=== PATIENT | female | born 1990 | race Caucasian/White ===

== ENCOUNTER 2017-12-01 01:25 | Inpatient (IN) | payer OTHER ==
[~2017-12-01] VITALS: Ht 152.4 cm; Wt 60.3 kg
[2017-12-01] MEDS ORDERED: USTE45DI (01:38)
[2017-12-01] MEDS ORDERED: FOLI1TAB16 PO (01:39)
[2017-12-01] MEDS ORDERED: CHOL50004 PO (01:39)
[2017-12-01] MEDS ORDERED: PANT40TA2 PO (01:39)
[2017-12-01] MEDS ORDERED: NORG1TAB PO (01:39)
--- NOTE | 2017-12-01 01:41 | NUR ---
Dr. Kent at bedside for MSE.
[2017-12-01] MEDS ORDERED: ONDANSETRON 4 MG/2 ML VIAL ONE ×3 (02:00→04:41)
[2017-12-01] MEDS ORDERED: HYDROMORPHONE 1 MG/1 ML DISP.SYRIN ONE ×2 (02:00→02:59)
[2017-12-01] MEDS ORDERED: ONDANSETRON 4 MG/2 ML VIAL IV ONE (02:00)
[2017-12-01] MEDS ORDERED: HYDROMORPHONE 1 MG/1 ML DISP.SYRIN IV ONE ×2 (02:00→03:00)
[2017-12-01] MEDS ORDERED: IV NORMAL SALINE 1000 ML BAG IV ONE ×2 (02:00→03:45)
[2017-12-01] MEDS ORDERED: FAMOTIDINE. 20 MG/2 ML VIAL IV ONE ×4 (02:00→03:45)
[2017-12-01 02:18] LABS: BASOPHILS % (AUTO) 0.4 % (0.0-2.0); EOSINOPHILS # (AUTO) 0.1 K/uL (0.0-0.7); HEMATOCRIT 38.4 % (31.2-41.9); HEMOGLOBIN 13.2 g/dL (10.9-14.3); LYMPHOCYTES # (AUTO) 2.2 K/uL (20.0-40.0); LYMPHOCYTES % (AUTO) 43.6 % (20.5-51.5); MEAN CORPUSCULAR HEMOGLOBIN 31.1 uug (24.7-32.8); MEAN CORPUSCULAR HGB CONC 34 g/dL (32.3-35.6); MEAN CORPUSCULAR VOLUME 90.2 fL (75.5-95.3); MONOCYTES # (AUTO) 0.5 K/uL (2.0-10.0); MONOCYTES % (AUTO) 9.7 % (0.0-11.0); NEUTROPHILS # (AUTO) 2.3 K/uL (1.8-8.9); NEUTROPHILS % (AUTO) 45.3 % (38.5-71.5); PLATELET COUNT (AUTO) 287 K/uL (179-408); RED BLOOD CELL COUNT(AUTO) 4.26 MIL/uL (3.63-4.92); WHITE BLOOD COUNT (AUTO) 5.1 K/uL (3.8-11.8)
[2017-12-01 02:23] LABS: CARBON DIOXIDE 27 mmol/L (21-32); CHLORIDE 106 mmol/L (98-107); CREATININE 0.6 mg/dL (0.6-1.3); GLUCOSE 86 mg/dL (74-106); POTASSIUM 3.6 mmol/L (3.5-5.1); UREA NITROGEN, BLOOD 11 mg/dL (7-18)
[2017-12-01 02:28] LABS: ALANINE AMINOTRANSFERASE 16 U/L (14-59); ALKALINE PHOSPHATASE 39 U/L (50-136); ASPARTATE AMINOTRANSFERASE 16 U/L (15-37); BILIRUBIN,DIRECT < 0.1 mg/dL (0.0-0.2); BILIRUBIN,TOTAL 0.4 mg/dL (0.2-1.0); LIPASE 152 U/L (73-393); TOTAL PROTEIN, SERUM 7.8 g/dL (6.4-8.2)
--- NOTE | 2017-12-01 02:43 | NUR ---
Pt provided urine sample, sent to lab.
[2017-12-01] MEDS ORDERED: ONDANSETRON IV *ER 4 MG/2 ML VIAL IV ONE ×2 (02:45→04:45)
--- NOTE | 2017-12-01 02:51 | NUR ---
Pt states abdominal pain is coming back, currently a 6/10, and still nauseous and vomitted twice. MD notified.
[2017-12-01 02:53] LABS: *CLARITY,URINE CLEAR (CLEAR); *COLOR,URINE YELLOW (YELLOW); *PROTEIN,URINE NEGATIVE (NEGATIVE)
[2017-12-01 02:54] LABS: *BILIRUBIN,URIN NEGATIVE (NEGATIVE); *BLOOD, URINE NEGATIVE (NEGATIVE); *KETONES,URINE NEGATIVE (NEGATIVE); *UROBILINOGEN,URINE 0.2 E.U./dl (NORMAL); LEUKOCYTE ESTERASE ,URINE TRACE (NEGATIVE); NITRITE, URINE NEGATIVE (NEGATIVE); UGLUCOSE NEGATIVE (NEGATIVE)
[2017-12-01] MEDS ORDERED: diphenhydrAMINE 50 MG/1 ML VIAL ONE (02:58)
[2017-12-01 02:59] LABS: BACTERIA,URINE FEW /HPF (NONE SEEN); RBC,URINE NONE SEEN /HPF (0-3); SQUAMOUS EPITHELIAL CELL,UR MANY /HPF (NONE SEEN); WBC,URINE 0-3 /HPF (0-3)
[2017-12-01] MEDS ORDERED: PROMETHAZINE HCL INJ 12.5 MG in IV DEXTROSE 5% 50 ML IV ONE (03:00)
[2017-12-01] MEDS ORDERED: diphenhydrAMINE 50 MG/1 ML VIAL IV ONE (03:00)
[2017-12-01] MEDS ORDERED: methylPREDNISolone SOD SUCC 125 MG/2 ML VIAL ONE (03:44)
[2017-12-01] MEDS ORDERED: methylPREDNISolone SOD SUCC 125 MG/2 ML VIAL IV ONE (03:45)
--- NOTE | 2017-12-01 04:11 | NUR ---
Pt's O2 sat 88% on room air, placed pt on O2@2L/min via nasal cannula.
[2017-12-01] MEDS ORDERED: ACETAMINOPHEN/CODEINE 300-30 MG TABLET PO ONE (04:15)
--- NOTE | 2017-12-01 04:19 | NUR ---
Administered PO challenge to patient.
--- NOTE | 2017-12-01 04:25 | NUR ---
Pt went to the bathroom, states she vomitted some of the water.
[2017-12-01] MEDS ORDERED: ACETAMINOPHEN/CODEINE 300-30 MG TABLET ONE (04:28)
--- NOTE | 2017-12-01 05:07 | NUR ---
Dr. Kent on panel call with Dr. Mcdonough.
[2017-12-01] MEDS ORDERED: IV NS 1000 ML 1,000 ML IV PRN (05:08)
[2017-12-01] MEDS ORDERED: Z GUARD REMEDY PASTE 57 GM TUBE TOP PRN (05:15)
[2017-12-01] MEDS ORDERED: ONDANSETRON 4 MG/2 ML VIAL IV PRN (05:15)
[2017-12-01] MEDS ORDERED: ACETAMINOPHEN 325 MG TABLET PO PRN (05:15)
--- NOTE | 2017-12-01 05:23 | NUR ---
Report given to [facility].
--- NOTE | 2017-12-01 05:35 | NUR ---
Patient arrived to unit in stable condition in no acute distress. Vital signs within range. Admit Dx of Intractable Vomiting under Dr. Mcdonough. Patient is A/Ox4 & able to make all needs known. Noted with left hand 20G IV site which is patent & intact, running with IV fluids NS at 125cc/hr. Patient complaining of nausea upon admission. Will treat per MD order & reassess. Inventory list completed. Call light within reach of patient. Will continue to monitor.
[2017-12-01 05:50] VITALS: BP 112/74
[2017-12-01] MEDS: PANTOPRAZOLE SODIUM 40 MG TABLET.DR PO SCH ×2 (08:55→09:00)
[2017-12-01] MEDS: FOLIC ACID 1 MG TABLET PO SCH ×2 (08:55→09:00)
[2017-12-01] MEDS ORDERED: NORGESTIMATE ETHINYL ESTRADIOL PO SCH (09:00)
[2017-12-01] MEDS ORDERED: CHOLECALCIFEROL 1,000 UNIT TABLET PO SCH (09:03)
[2017-12-01] MEDS ORDERED: MORPHINE SULFATE 2 MG/1 ML DISP.SYRIN IM PRN (10:15)
[2017-12-01] MEDS ORDERED: BARIUM SULFATE 450 ML ORAL.SUSP ONE (10:15)
[2017-12-01] MEDS ORDERED: MORPHINE SULFATE 4 MG/1 ML DISP.SYRIN IV PRN (10:15)
[2017-12-01] MEDS ORDERED: PANTOPRAZOLE SODIUM 40 MG VIAL IV SCH (10:15)
[2017-12-01] MEDS ORDERED: NORMAL SALINE FLUSH 10 ML DISP.SYRIN ONE (10:23)
[2017-12-01] MEDS ORDERED: IV NORMAL SALINE 250 ML IV ONE (10:23)
[2017-12-01] MEDS ORDERED: IOHEXOL 300MG/ML 100 ML INFUS..BTL ONE (10:23)
[2017-12-01] MEDS ORDERED: SWABABLE VALVE TRANSFER SET EA MC ONE (10:23)
[2017-12-01 11:52] VITALS: BP 125/85
--- NOTE | 2017-12-01 15:32 | NUR ---
PATIENT WAS GIVEN DISCHARGE INSTRUCTIONS, IV REMOVED, AND FOLLOW UP APPOINTMENT RECORDED. PATIENTS ID REMOVED AND WALKED DOWN TO DISCHARGE AREA.
[2017-12-01] MEDS ORDERED: ORTHO TRI CYCLEN PO SCH (21:00)
== END 2017-12-01 15:35 | disposition home or self-care (01) | DRG 245 ==
LOC: ER 01:33 → MED 04:50
PROVIDERS: ADMIT Internal Medicine; ATTEND Internal Medicine
DX: K50.90 Crohn's disease, unspecified, without complications (principal); Z76.5 Malingerer [conscious simulation]
CPT/HCPCS: 36415; 74160; 83690; 85025; A4663; C9113; J1170; J1200; J2270; J2405; J2550; J2930; J3490; J7030; J7050; J7060; Q9951; Q9967